=== PATIENT | male | born 1960 | race Caucasian/White ===

== ENCOUNTER 2018-01-04 16:15 | Inpatient (IN) | payer OTHER ==
[2018-01-04 17:23] LABS: BASOPHILE ABSOLUTE 0.3 Th/cumm (0-0.2); HEMOGLOBIN 9.2 gm/dL (12-16); LYMPHOCYTE ABSOLUTE 5.2 Th/cmm (1.5-3.0); MANUAL DIFF REQUIRED? YES; MEAN CELL VOLUME 82.1 fl (80-99); MEAN CORPUSCULAR HGB CONC 32.9 pg (28.0-36.0); MEAN PLATELET VOLUME 7.6 fl; MONOCYTE ABSOLUTE 0.2 Th/cmm (0.3-1.0); NEUTROPHILE ABSOLUTE 2.7 Th/cmm (1.8-8.0); PLATELET COUNT 535 Th/cmm (150-400); RED BLOOD COUNT 3.42 Mil/cmm (4.30-5.70); RED CELL DISTRIBUTION WIDTH 20.5 % (11.5-20.0); WHITE BLOOD COUNT 8.4 Th/cmm (4.8-10.8)
--- NOTE | 2018-01-04 17:25 | ED Physician Chart ---
ED Chief Complaint/HPI - Patient Information Date Seen:: 01/04/18 Time Seen:: 17:16 Chief Complaint:: Cough History of Present Illness:: 57 yo male had dry cough and SOB for 3 months. Fever for 2 weeks, night sweat, loss of appetite. Never smoke tobacco. No international traveling. Working at a metal shop. Treated with Z-pack 12/07/17 and oral levaquin finished 2 days ago with some improvement. However, patient felt fatigue, fever 101.4 F with persisted cough. Hb 8.7 on 12/26/17. He denied any blood in stool or urine. Allergies:: Allergies Allergy/AdvReac Type Severity Reaction Status Date / Time No Known Allergies Allergy Verified 01/04/18 16:34 Vitals:: Vital Signs - 8 hr 01/04/18 16:34 Temp 99.0 F HR 106 RR 16 BP 108/67 O2 Sat % 98 ED Review of Systems - Review of Systems General/Constitutional: Fever, Chills Skin: No skin lesions Head: Headache Eyes: No pain ENT: No earache Neck: No neck pain Cardio Vascular: No chest pain Pulmonary: SOB GI: No nausea, No vomiting Musculoskeletal: No bone or joint pain ED Past Medical History - Past Medical History Past Medical History: HTN Social History: Non Smoker, No Alcohol, No Drug Use Surgical History: None Family Medical History - Family Member Brother Hx Family Cancer: No Hx Family Coronary Artery Disease: No Hx Family Congestive Heart Failure: No Hx Family Stroke: No Hx Family Diabetes: No Hx Family Seizures: No Hx Family Dementia: No Hx Family HIV: No Hx Family COPD: No ED Physical Exam - Physical Examination General/Constitutional: Awake, Alert Head: Atraumatic Eyes: PERRL Other Skin comments:: pale ENMT: Nasal exam nl Neck: No nuchal rigidity Other Respiratory comments:: b/l lung mild crackles Cardio Vascular: RRR, No murmur, gallop, rubs, NL S1 S2 GI: No tenderness/rebounding/guarding Extremities: normal strength in all extremities Neuro/Psych: No focal deficits ED Assessment - Assessment General Assessment: Bronchitis Anemia Assessment/Comments:: CBC, CMP, PT/PTT, D-dimer CXR, EKG Atrovent ED Septic Shock - . Is Septic Shock (SBP<90, OR Lactate>4 mmol\L) present?: No - <6hrs of presentation: Vital Signs: Vital Signs - 8 hr 01/04/18 16:34 Temp 99.0 F HR 106 RR 16 BP 108/67 O2 Sat % 98 ED Reassessment (Disposition) - Reassessment Reassessment Condition:: Improved - Patient Disposition Discharge/Transfer:: Acute Care w/in this hosp
[2018-01-04 17:28] LABS: pH 7.48 (7.35-7.45)
[2018-01-04 17:29] LABS: ALLEN TEST POSITIVE
[2018-01-04] MEDS ORDERED: Ipratropium Neb 0.5 mg/2.5 mL UD HHN STA (17:30)
[2018-01-04] MEDS ORDERED: Ipratropium Neb 0.5 mg/2.5 mL UD HHN ONE (17:35)
[2018-01-04 17:39] LABS: INR 1.09 (0.5-1.4); PROTHROMBIN TIME (TEST) 11.3 SECONDS (9.5-11.5)
[2018-01-04 17:42] LABS: ALB/GLOB RATIO 1.4 (1.0-1.8); ALBUMIN 3.9 gm/dL (4.2-5.5); ALKALINE PHOSPHATASE 55 U/L (34-104); ANION GAP 10.3 (7.0-16.0); BILIRUBIN,TOTAL 0.6 mg/dL (0.3-1.0); BUN - UREA NITROGEN 15 mg/dL (7-25); CALCIUM SERUM 9.3 mg/dL (8.6-10.3); CARBON DIOXIDE 24.7 mEq/L (21.0-31.0); CHLORIDE 105 mEq/L (98-107); GFR AFRICAN-AMERICAN > 60.0 ml/min (>90); GFR NON AFRICAN-AMERICAN > 60.0 ml/min; GLUCOSE 98 mg/dL (70-105); SGOT 15 U/L (13-39); SGPT/ALT 45 U/L (7-52); SODIUM SERUM 136 mEq/L (136-145); TOTAL PROTEIN,SERUM 6.6 gm/dL (6.0-8.3)
[2018-01-04 18:36] LABS: BAND NEUTROPHILE 0 % (0-10); BASOPHIL 0 % (0-3); EOSINOPHIL 0 % (0-5); LYMPHOCYTE 63 % (20-50); MONOCYTE 3 % (2-10); NEUTROPHILS 34 % (40-80); TOTAL CELLS COUNTED 100
[2018-01-04 18:37] LABS: CHOLESTEROL 120 mg/dL (<200); HDL -HIGH DENSITY LIPOPROTEIN 25 mg/dL (23-92); TRIGLYCERIDES 105 mg/dL (<150)
[2018-01-04 19:12] LABS: URINE MICROSCOPIC INDICATED? YES; URINE SOURCE CLEAN C
[2018-01-04 19:14] LABS: URINE BILIRUBIN NEGATIVE (NEGATIVE); URINE BLOOD NEGATIVE (NEGATIVE); URINE GLUCOSE (UA) NEGATIVE (NEGATIVE); URINE KETONE NEGATIVE (NEGATIVE); URINE LEUKOCYTE ESTERASE NEGATIVE (NEGATIVE); URINE NITRATE NEGATIVE (NEGATIVE); URINE PROTEIN NEGATIVE (NEGATIVE); URINE UROBILINOGEN 0.2 E.U./dL (0.2 - 1.0)
[2018-01-04 20:13] LABS: URINE CLARITY CLEAR (CLEAR); URINE COLOR YELLOW; URINE RBC 0-2 /hpf (0-5); URINE WBC NONE SEEN /hpf (0-5)
[2018-01-04 20:14] LABS: URINE BACTERIA NONE SEEN /hpf (NONE SEEN); URINE EPITHELIAL CELLS RARE /lpf (FEW)
[2018-01-04] MEDS ORDERED: IOHEXOL 300mgI/mL 100 ML VIAL ONE (20:22)
[2018-01-04] MEDS ORDERED: Albuterol/Ipratropium Neb 3 ML AERS HHN PRN (22:06)
[2018-01-04] MEDS ORDERED: cefTRIAXone 1 GM in Sodium Chloride 0.9% 50 ML IV SCH (23:00)
[2018-01-04] MEDS ORDERED: Azithromycin 500 MG in Sodium Chloride 0.9% 250 ML IV SCH (23:00)
[2018-01-05] MEDS ORDERED: NITROGLYCERIN OINT 2% 1 INCH PACKET TP SCH
[2018-01-05] MEDS ORDERED: Albuterol/Ipratropium Neb 3 ML AERS HHN SCH (01:00)
--- NOTE | 2018-01-05 08:59 | Diagnostic Imaging Report ---
CHEST X-RAY: AP view INDICATION: Shortness of breath COMPARISON: None FINDINGS: Left lower lung zone linear markings are noted. No focal consolidation or effusions. Heart size is normal. The osseous structures are intact. IMPRESSION: Left lower lung zone linear markings which may be due to discoid atelectasis or scarring.
[2018-01-05] MEDS ORDERED: Atorvastatin Calcium 10 MG TAB PO SCH (09:00)
[2018-01-05] MEDS ORDERED: Aspirin 81mg Chewable Tab PO SCH (09:00)
--- NOTE | 2018-01-05 09:21 | Diagnostic Imaging Report ---
CT Chest with IV contrast HISTORY: Cough COMPARISON: Chest x-ray earlier the same day. Technique: Axial images were obtained from the base of the neck to the upper abdomen following administration of IV contrast. Coronal reconstructions were made. Total DLP 271, CTD I 6.4 Findings: There is no evidence of mediastinal lymphadenopathy. The heart size is normal. Mild atherosclerotic vascular disease is noted. No evidence of an aortic aneurysm. No pericardial effusion identified. Evaluation of the lungs demonstrates linear densities of the lungs most pronounced within the left lower lobe suggestive of areas of subsegmental atelectasis or scarring. No consolidation or pleural effusions. No pulmonary mass lesions identified. The upper abdomen demonstrates no acute abnormalities. Mild degenerative changes of the spine are noted. IMPRESSION: Linear densities primarily of the lower lung zones, left greater than right, suggestive of areas of subsegmental atelectasis versus scarring. No focal consolidation or pleural effusions. Mild atherosclerosis.
== END 2018-01-05 01:50 | disposition left against medical advice (07) | DRG 203 ==
LOC: ER 16:15 → TELE 18:35
PROVIDERS: ADMIT Internal Medicine; ATTEND Internal Medicine
DX: J40 Bronchitis, not specified as acute or chronic (principal); D64.9 Anemia, unspecified; I10 Essential (primary) hypertension; Z53.21 Procedure and treatment not carried out due to patient leaving prior to being seen by health care provider
CPT/HCPCS: 36415-UA; 71045-TC; 71260-TC; 80053-TC; 80061-TC; 81001-TC; 82803-TC; 83880-TC; 84443-TC; 84484-TC; 85007-TC; 85025-TC; 85027-TC; 85379-TC; 85610-TC; 90779; 93005; J0456; J0696; J2930; Q9967